=== PATIENT | male | born 1995 | race Caucasian/White ===

== ENCOUNTER 2017-11-21 23:47 | Emergency (ER) | payer MEDICAID ==
[~2017-11-21] VITALS: Ht 177.8 cm; Wt 86.0 kg
[2017-11-22] MEDS ORDERED: KETOROLAC 60MG/2ML VIAL IM ONE (00:45)
[2017-11-22 02:26] VITALS: BP 144/80
== END 2017-11-22 02:29 | disposition home or self-care (01) ==
LOC: ER 23:47
DX: S43.402A Unspecified sprain of left shoulder joint, initial encounter (principal); V89.2XXA Person injured in unspecified motor-vehicle accident, traffic, initial encounter; Y92.410 Unspecified street and highway as the place of occurrence of the external cause
CPT/HCPCS: 73030; 96372; 99284; J1885; Z7610; A4565